=== PATIENT | male | born 1950 | race Caucasian/White ===

== ENCOUNTER → 2020-04-15 | Outpatient (CLI) | payer MEDICARE | END | disposition home or self-care (01) | LOC: STAR 09:40 | PROVIDERS: ATTEND Anesthesiology | DX: Z20.828 Contact with and (suspected) exposure to other viral communicable diseases (principal) | CPT/HCPCS: 36415; 87635 ==

== ENCOUNTER 2020-04-20 05:41 | Day surgery (SDC) | payer MEDICARE ==
[~2020-04-20] VITALS: Ht 180.3 cm; Wt 75.2 kg
[2020-04-20] MEDS ORDERED: EPINEPHRINE 1 MG/ML, 1ML ONE (05:58)
[2020-04-20] MEDS ORDERED: BUPIVACAINE/PF 0.25% ONE (05:58)
[2020-04-20 06:21] VITALS: BP 116/74
[2020-04-20] MEDS ORDERED: LACTATED RINGERS 1,000 ML IV ONE (06:23)
[2020-04-20] MEDS ORDERED: CHLORHEXIDINE 15 ML UDC MM STA (06:23)
[2020-04-20] MEDS ORDERED: VITAMIN B12 (06:25)
[2020-04-20] MEDS ORDERED: VITAMIN D (06:25)
[2020-04-20] MEDS ORDERED: MELO7.5T31 PO (06:25)
[2020-04-20] MEDS ORDERED: ATOR20TA37 PO (06:25)
[2020-04-20] MEDS ORDERED: ASPI-650 PO (06:25)
[2020-04-20] MEDS ORDERED: VITAMIN C (06:25)
[2020-04-20] MEDS ORDERED: FENTANYL PF 100 MCG/2ML ONE ×2 (06:28→08:57)
[2020-04-20] MEDS ORDERED: MIDAZOLAM 1 MG/ML, 2ML ONE (06:28)
[2020-04-20] MEDS ORDERED: LIDOCAINE PF 2%, 5ML ONE (07:04)
[2020-04-20] MEDS ORDERED: PHENYLEPHRINE 10 MG/ML ONE (07:04)
[2020-04-20] MEDS ORDERED: ACETAMINOPHEN 650 MG/20.3 ML UDC ONE (08:57)
[2020-04-20] MEDS ORDERED: OXYcodone 5 MG/5 ML ORAL.SOL UDC ONE (08:57)
[2020-04-20] MEDS ORDERED: ACETAMINOPHEN 325 MG TABLET PO PRN (09:00)
[2020-04-20] MEDS ORDERED: OXYcodone 5 MG/5 ML ORAL.SOL UDC PO PRN (09:00)
[2020-04-20] MEDS ORDERED: MEPERIDINE/PF 25MG/0.5ML IVPush PRN (09:00)
[2020-04-20] MEDS ORDERED: HYDROmorphone 1 MG/ML, 1ML INJ IVPush PRN (09:00)
[2020-04-20] MEDS ORDERED: PROMETHAZINE 25 MG/ML, 1ML IVPush PRN (09:00)
[2020-04-20] MEDS ORDERED: ONDANSETRON 2MG/ML, 2ML IVPush PRN (09:00)
[2020-04-20] MEDS: FENTANYL PF 100 MCG/2ML IV PRN ×2 (09:00→09:04)
[2020-04-20] MEDS ORDERED: NEOSTIGMINE 1 MG/ML, 10ML ONE (10:47)
[2020-04-20] MEDS ORDERED: ROCURONIUM 10MG/ML,5ML ONE (10:47)
[2020-04-20] MEDS ORDERED: SUCCINYLCHOLINE 20 MG/ML, 10ML ONE (10:47)
[2020-04-20] MEDS ORDERED: CEFAZOLIN 1,000 MG ONE (10:47)
[2020-04-20] MEDS ORDERED: ONDANSETRON 2MG/ML, 2ML ONE (10:47)
[2020-04-20] MEDS ORDERED: DEXAMETHASONE 4 MG/ML, 1ML ONE (10:47)
[2020-04-20] MEDS ORDERED: PROPOFOL 10 MG/ML, 20ML ONE (10:47)
[2020-04-20] MEDS ORDERED: GLYCOPYRROLATE 0.2MG/1ML, 5ML ONE (10:47)
== END 2020-04-20 10:25 | disposition home or self-care (01) ==
LOC: OUT 05:41
PROVIDERS: ATTEND Orthopaedic Surgery
DX: S46.012A Strain of muscle(s) and tendon(s) of the rotator cuff of left shoulder, initial encounter (principal); S46.112A Strain of muscle, fascia and tendon of long head of biceps, left arm, initial encounter; S43.432A Superior glenoid labrum lesion of left shoulder, initial encounter; G89.18 Other acute postprocedural pain; M75.42 Impingement syndrome of left shoulder; M75.02 Adhesive capsulitis of left shoulder; M19.012 Primary osteoarthritis, left shoulder; Z79.1 Long term (current) use of non-steroidal anti-inflammatories (NSAID); Z79.899 Other long term (current) drug therapy; Z87.891 Personal history of nicotine dependence; Z96.641 Presence of right artificial hip joint; Z98.890 Other specified postprocedural states; Z82.61 Family history of arthritis; W19.XXXA Unspecified fall, initial encounter; Y93.89 Activity, other specified; Y92.89 Other specified places as the place of occurrence of the external cause; Y99.8 Other external cause status
CPT/HCPCS: 29823; 29826; 29827; 64415; C1713; J0171; J0330; J0690; J1100; J2250; J2370; J2405; J2704; J2710; J3010; J3490; J7120